=== PATIENT | male | born 1970 | race Two or more races ===

== ENCOUNTER 2020-10-09 13:43 | Emergency (ER) | payer MEDICAID, OTHER ==
[~2020-10-09] VITALS: Ht 185.4 cm; Wt 117.9 kg
[2020-10-09 13:52] VITALS: BP 190/120
== END 2020-10-09 14:54 | disposition left against medical advice (07) ==
LOC: ER 13:43 → EDBD 13:43 → ER 14:54
DX: R07.89 Other chest pain (principal); Z53.21 Procedure and treatment not carried out due to patient leaving prior to being seen by health care provider

== ENCOUNTER 2020-10-09 17:09 | Emergency (ER) | payer MEDICAID ==
[~2020-10-09] VITALS: Ht 185.4 cm; Wt 117.9 kg
[2020-10-09] MEDS ORDERED: cloNIDine HCL 0.1 MG TAB PO ONE (19:15)
[2020-10-09 22:40] VITALS: BP 188/104
[2020-10-09] MEDS ORDERED: LISINOPRIL 20 MG TAB PO ONE (22:45)
== END 2020-10-09 23:20 ==
LOC: EDBD 17:09 → ER 17:09
DX: I16.0 Hypertensive urgency (principal); M54.2 Cervicalgia
CPT/HCPCS: 70450